=== PATIENT | male | born 1965 | race Caucasian/White ===

== ENCOUNTER 2017-09-19 19:51 | Inpatient (IN) | payer OTHER ==
[2017-09-19] MEDS ORDERED: ADACEL TDaP IM ONE ×2 (21:19→21:27)
[2017-09-19 22:23] LABS: BLOOD UREA NITROGEN 12 mg/dL (7-18); CALCIUM 8.5 mg/dL (8.5-10.1); CHLORIDE 99 mmol/L (98-107); CREATININE 1.03 mg/dL (0.70-1.30); SODIUM 136 mmol/L (136-145); eGFR BLACK RACES > 60 (>60); eGFR NON BLACK RACES > 60 (>60)
[2017-09-19] MEDS ORDERED: ANCEF VIAL 1 GM 2 GM in NS 100 ML IV 100 ML IV ONE (23:13)
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
[2017-09-19 23:42] LABS: BILIRUBIN,URINE NEGATIVE (NEGATIVE); BLOOD/HEMOGLOBIN,URINE NEGATIVE (NEGATIVE); GLUCOSE, URINE NEGATIVE (NEGATIVE); KETONES,URINE NEGATIVE (NEGATIVE); LEUKOCYTE ESTERASE ,URINE NEGATIVE (NEGATIVE); NITRITES,URINE NEGATIVE (NEGATIVE); PH,URINE 6.5 (5.0 - 8.0); PROTEIN,URINE NEGATIVE (NEGATIVE); UROBILINOGEN,URINE NORMAL (NORMAL)
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
[2017-09-19 23:49] LABS: APPEARANCE,URINE CLEAR (CLEAR); BACTERIA,URINE NEGATIVE /HPF (NEGATIVE); COLOR,URINE PALE YELLOW (YELLOW); RBC,URINE NONE SEEN /HPF (NONE SEEN); SQUAMOUS EPITHELIAL CELL,UR RARE /HPF (NEGATIVE)
[2017-09-20] MEDS ORDERED: ANCEF VIAL 1 GM ONE (00:01)
[2017-09-20] MEDS ORDERED: NS 100 ML IV 100 ML IV ONE (00:02)
[2017-09-20] MEDS ORDERED: ZOFRAN INJ 4 MG VIAL ONE (00:10)
[2017-09-20] MEDS ORDERED: ZOFRAN INJ 4 MG VIAL IVP ONE (00:10)
[2017-09-20] MEDS ORDERED: MORPHINE SULFATE INJ 2 MG INJ IVP ONE ×2 (00:10→01:29)
[2017-09-20] MEDS ORDERED: MORPHINE SULFATE INJ 2 MG INJ ONE ×2 (00:10→01:29)
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
[2017-09-20] MEDS ORDERED: XYLOCAINE 1 % (PLAIN) ONE (00:42)
[2017-09-20] MEDS ORDERED: ZOFRAN INJ 4 MG VIAL IVP PRN (02:16)
[2017-09-20] MEDS ORDERED: BACTROBAN OINT TOP ONE (02:37)
[2017-09-20] MEDS ORDERED: BACITRACIN ZINC ONE (02:37)
[2017-09-20 05:11] VITALS: BMI 25.9
[2017-09-20] MEDS: MORPHINE SULFATE INJ 2 MG INJ IVP PRN ×4 (05:40→20:36)
[2017-09-20] MEDS ORDERED: XYLOCAINE 2 % (PLAIN) ONE (12:12)
--- NOTE | 2017-09-20 12:35 | RAD ---
History: Right index finger wound Study: PA oblique and lateral views of the right hand Comparison: Yesterday Findings: There is no interval change. There is persistent dorsal dislocation of the PIP joint of the 2nd digit. There is a dorsal fracture at the base of the distal phalanx of the 2nd digit with minima l distraction. There are mild osteophytes about the 1st metacarpophalangeal joint space. Impression: 1. Unchanged dorsal dislocation of the PIP joint of the 2nd digit 2. Unchanged fracture at the dorsal base of the distal phalanx of the 2nd digit Reported By:
[2017-09-20] MEDS ORDERED: BACITRACIN ZINC TOP ONE (12:48)
--- NOTE | 2017-09-20 13:38 | RAD ---
History: Post reduction of right index finger Study: Oblique and lateral and PA views of the right hand Findings: There is anatomical reduction of the PIP joint of the 2nd digit. There is a persistent frac ture at the dorsal base of the distal phalanx of the 2nd digit. There are osteophytes about the 1st m etacarpal phalangeal joint. There is soft tissue swelling about the index finger diffusely. Impression: Anatomical reduction of the PIP joint of the index finger Reported By:
[2017-09-20] MEDS ORDERED: FLEXERIL TAB 10 MG PO PRN (18:23)
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
[2017-09-20] MEDS ORDERED: NS 100 ML IV + SPIKE MINIBAG* 100 ML IV ONE ×2 (20:13→23:25)
[2017-09-20] MEDS ORDERED: NS 250 ML IV 250 ML IV ONE (20:14)
[2017-09-20] MEDS ORDERED: NS 1000 ML 1,000 ML ONE (20:26)
[2017-09-20] MEDS: ANCEF VIAL 1 GM 2 GM in NS 100 ML IV 100 ML IV SCH ×2 (20:35→23:35)
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
[2017-09-21] MEDS: MORPHINE SULFATE INJ 2 MG INJ IVP PRN ×2 (00:44→06:32)
[2017-09-21] MEDS: ANCEF VIAL 1 GM 2 GM in NS 100 ML IV 100 ML IV SCH (06:08)
[2017-09-21] MEDS ORDERED: NS 100 ML IV + SPIKE MINIBAG* 100 ML IV ONE (06:15)
[2017-09-21 06:30] LABS: BASOPHILS % (AUTO) 0.4 % (0.2-1.0); EOSINOPHILS # (AUTO) 0.1 x10^3/uL (0.0-0.2); EOSINOPHILS % (AUTO) 0.5 % (0.9-2.9); HEMATOCRIT 37.5 % (42.0-54.0); HEMOGLOBIN 13.3 g/dL (13.5-18.0); LYMPHOCYTES # (AUTO) 2.1 X10^3/uL (1.3-2.9); LYMPHOCYTES % (AUTO) 16.9 % (21.0-51.0); MEAN CORPUSCULAR HEMOGLOBIN 33.1 pg (27.0-34.0); MEAN CORPUSCULAR HGB CONC 35.6 g/dL (33.0-35.0); MEAN CORPUSCULAR VOLUME 93.2 fL (80.0-100.0); MEAN PLATELET VOLUME 7.5 fL (7.4-11.0); MONOCYTES # (AUTO) 1.6 x10^3/uL (0.3-0.8); MONOCYTES % (AUTO) 13.2 % (0.0-13.0); NEUTROPHILS # (AUTO) 8.4 x10^3/uL (2.2-4.8); PLATELET COUNT 301 X10^3/uL (150.0-450.0); RED BLOOD COUNT 4.03 X10^6/uL (4.7-6.0); RED CELL DISTRIBUTION WIDTH 12.9 % (11.6-16.5); WHITE BLOOD COUNT 12.1 X10^3/uL (3.6-10.0)
[2017-09-21 06:43] LABS: ALANINE AMINOTRANSFERASE 32 Units/L (12-78); ALBUMIN 3.6 g/dL (3.4-5.0); ALKALINE PHOSPHATASE 63 Units/L (46-116); ASPARTATE AMINO TRANSFERASE 36 Units/L (15-37); BLOOD UREA NITROGEN 17 mg/dL (7-18); CALCIUM 8.4 mg/dL (8.5-10.1); CARBON DIOXIDE 26.3 mmol/L (21-32); CHLORIDE 100 mmol/L (98-107); COR NA(FOR HYPERGLY) 138 mmol/L (136-145); CREATININE 1.12 mg/dL (0.70-1.30); SODIUM 137 mmol/L (136-145); TOTAL PROTEIN 7.6 g/dL (6.4-8.2); eGFR BLACK RACES > 60 (>60); eGFR NON BLACK RACES > 60 (>60)
[2017-09-21] MEDS ORDERED: BACITRACIN VIAL ONE (07:16)
[2017-09-21] MEDS ORDERED: BACTROBAN OINT ONE (07:17)
[2017-09-21] MEDS ORDERED: FENTANYL INJ 100 mcg ONE (07:19)
[2017-09-21] MEDS ORDERED: LR 1000 ML IV 1,000 ML IV ONE ×2 (07:24→07:30)
--- NOTE | 2017-09-21 07:34 | RAD ---
Exam: Abdomen, frontal view History: Lung contusion. Comparison: Previous chest CT from 09/19/2017 Findings: Heart size and pulmonary vasculature are normal. Lungs are clear with no infiltrate or significant ef fusion on either side. No pneumothorax. The previously described fractures involving the right 4th an d and 5th ribs (noted on CT) not clearly identified on this exam. IMPRESSION: No acute cardiopulmonary abnormality is seen on this exam. Reported By:
[2017-09-21] MEDS ORDERED: NS IRRIGATION 1000 ML 1,000 ML with BACITRACIN VIAL 50,000 UNT IR ONE ×2 (08:27)
[2017-09-21] MEDS ORDERED: HYDROGEN PEROXIDE 3% ONE (08:52)
[2017-09-21] MEDS ORDERED: PERCOCET TAB 5/325 MG PO PRN (09:20)
--- NOTE | 2017-09-21 09:55 | RAD ---
HISTORY: Postop right index finger. ORIF Study: Right hand: Three views obtained portably Comparison: Exams from 09/20/2017, 09/19/2017 Findings: Since the prior examination there has been placement of 2 orthopedic wires. One traverses the distal phalanx and extends through the distal interphalangeal joint into the middle phalanx. The other shyanne ears to extend just through the head of the middle phalanx. There is near anatomic position and alig nment. On the lateral view there is what appears to be a fracture through the base of the middle pha lanx that extends into the proximal interphalangeal joint space. There is mild degenerative change i n the 1st carpal metacarpal joint 1st metacarpophalangeal joint. IMPRESSION: 1. Status post pin placement as described above. 2. There are findings suggesting a nondisplaced fracture through the base of the middle phalanx that extends into the proximal interphalangeal joint . Clinical correlation is recommended. Reported By:
[2017-09-21] MEDS ORDERED: VERSED ONE (10:14)
[2017-09-21] MEDS ORDERED: XYLOCAINE 2 % (PLAIN) ONE (10:14)
[2017-09-21] MEDS ORDERED: DIPRIVAN VIAL ONE (10:14)
[2017-09-21 12:41] VITALS: BP 140/84
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
== END 2017-09-21 14:03 | disposition home or self-care (01) | DRG 983 ==
LOC: ER 19:51 → OBSVTOIN 09-20 02:59 → MED/SURG 09-20 02:59
PROVIDERS: ADMIT Internal Medicine; ATTEND Internal Medicine
PROC: 0HQ1XZZ Repair Face Skin, External Approach (ICD-10-PCS; principal; 2017-09-19)
PROC: 0HQFXZZ Repair Right Hand Skin, External Approach (ICD-10-PCS; 2017-09-19)
PROC: 0RSWXZZ Reposition Right Finger Phalangeal Joint, External Approach (ICD-10-PCS; 2017-09-19)
PROC: 0PSTXZZ Reposition Right Finger Phalanx, External Approach (ICD-10-PCS; 2017-09-20)
PROC: 0JDJ0ZZ Extraction of Right Hand Subcutaneous Tissue and Fascia, Open Approach (ICD-10-PCS; 2017-09-21)
PROC: 0PS Upper Bones, Reposition (ICD-10-PCS; 2017-09-21)
DX: S27.321A Contusion of lung, unilateral, initial encounter (principal); S62.630A Displaced fracture of distal phalanx of right index finger, initial encounter for closed fracture; S63.280A Dislocation of proximal interphalangeal joint of right index finger, initial encounter; Y92.89 Other specified places as the place of occurrence of the external cause; M25.562 Pain in left knee; M54.2 Cervicalgia; K21.9 Gastro-esophageal reflux disease without esophagitis; I10 Essential (primary) hypertension; M20.011 Mallet finger of right finger(s); V86.59XA Driver of other special all-terrain or other off-road motor vehicle injured in nontraffic accident, initial encounter
CPT/HCPCS: 12001; 12011; 26725; 36415; 70450; 70486; 71045; 71260; 72125; 73130; 73564; 74177; 76000; 80048; 80053; 81001; 85025; 87070; 87075; 87205; 90471; 93005; 93010; 96365; 96374; 96375; 99284; A4222; J0690; J2001; J2250; J2270; J2405; J3010; J3490; J7120

== ENCOUNTER 2018-03-24 12:10 | Inpatient (IN) ==
[2018-03-24 12:40] VITALS: BMI 27.9
--- NOTE | 2018-03-24 13:32 | DR.URIAD ---
HPI Time Seen Time Seen by Provider: 03/24/18 13:11 PCP Primary Care Physician: EDUAR CONTRERAS HPI Comment HPI Comment: SAW PCP 2 DAYS AGO. CHECK FOR FLU, NEGATIVE. HAD IM TORADOL, DECADRON AND ROCEPHIN IN THE OFFICE AND CONTINUE WITH PO ANTIBIOTIC AND ALBUTEROL INHALER. HE CONTINUE TO FEEL WORSE. PERSISTENTLY COUGHING. HE IS WEAK AND DRAIN OF ENERGY. Complaint Chief Complaint Doctors Comments: INCREASING SOB, COUGH, CONGESTION AND FEVER TIMES FEW DAYS. Chief Complaint:: URI Reviewed Nurses Notes Reviewed: Yes Source History Provided: Patient and Family Member Mode of Arrival Mode of Arrival: Ambulatory Timing Onset of Chief Complaint: 03/24/18 Context Recent Treated Infections: URI History of Respiratory: None Quality Quality of Cough: Productive and Yellow Rhinorrhea: Clear Associated Signs and Symptoms Other Signs and Symptoms: Cough, Fever, Myalgias, Shortness of Breath, Sore Throat, URI and Wheeze PMH PMH Past Medical History: Yes Past Medical History: Dyslipidemia, GERD and Hypertension Past Surgical History: Yes Surgical History: Appendectomy, Ortho Surgery and Other Family History History of Family Medical Conditions: Yes Family Medical History: Diabetes Mellitus, [place] and Hypertension Social History Does patient currently use any type of tobacco product: No Have you used tobacco products in the last 12 months: No Type of Tobacco Use: None Does any household member use tobacco: No Alcohol Use: Rarely Do you use any recreational Drugs:: No Lives With: Spouse Lives Where: Home infectious screening In the last 2 months have you had wt loss of >10#?: NO Have you had fever, night sweats or hemotysis?: No Have you traveled outside the country in the last 6 months?: No Isolation: Standard ROS Review of Systems Constitutional: No Symptoms Reported, Chills, Fever, Weakness and Fatigue Eyes: No Symptoms Reported ENTM: No Symptoms Reported, Ear Pain, Nose Discharge, Nose Congestion and Throat Pain Respiratoy: No Symptoms Reported, Productive Cough and Short of Breath Cardiovascular: No Symptoms Reported and Chest Pain Gastrointestinal/Abdominal: No Symptoms Reported Genitourinary: No Symptoms Reported Neurological: Headache, Weakness and Dizziness Musculoskeletal: Muscle Pain Integumentary: Dryness Hematologic/Lymphatic: No Symptoms Reported Endocrine: No Symptoms Reported Psychiatric: No Symptoms Reported All Other Systems: Reviewed and Negative PE Vital Signs Vitals: Temperature 98.1 F Pulse Rate [Right Brachial] 77 Pulse Rate [Left Brachial] 80 Pulse Rate 73 Respiratory Rate 20 Blood Pressure [Right Arm] 146/80 Blood Pressure [Left Arm] 106/59 Blood Pressure 132/92 O2 Sat by Pulse Oximetry 95 General Limitations: No Limitations General Appearance: Alert and In Distress Head Head Exam: Normal Inspection and Atraumatic Eyes Eye exam: Normal Appearance, PERRL and EOMI; negative Scleral Icterus and Conjunctival Injection ENT ENT Exam: Normal Exam, Normal External Ear Exam and TM's Normal Bilaterally External Ear Exam: Normal External Inspection TM/Canal Exam: Bilateral: Normal Nose Exam: Normal Nose Exam Nasal Speculum Exam: Bilateral: Normal Mouth Exam: Normal Inspection Throat Exam: Tonsillar Erythema; negative Tonsillomegaly and Tonsillar Exudate Neck Neck Exam: Normal Inspection and Trachea Midline Chest Chest Inspection: Normal Inspection and Symmetric Chest Wall Rise Respiratory Respiratory Exam: Normal Lung Sounds Bilat Respiratory Exam: Bilateral: Wheezing and Bilateral: Rhonchi and Lower: Wheezing and Lower: Rhonchi Cardiovascular Cardiovascular Exam: Regular Rate and Normal Rhythm Abdominal Exam Abdominal Exam: Normal Inspection, Normal Bowel Sounds and Soft Extremeties Extremities Exam: Normal Inspection Back Back Exam: Normal Inspection Neurologic Neurological Exam: Alert, Oriented X3 and CN II-XII Intact; negative Motor Sensory Deficit Psychiatric Psychiatric Exam: Normal Affect and Normal Mood Skin Skin Exam: Dry MDM Additional Information Additional Information Obtained From: Family Differential Diagnosis Differential Diagnosis: Otitis media, Streptococcal pharyngitis, Viral pharyngitis, Pneumonia and Sinsusitis COURSE Treatment Treatment: SEE ORDERS. Consultation Consultation Comments: DISCUSS PATIENT WITH Education/Counseling Education/Counseling: Patient, Family and Education Educated On: Diagnosis ROR Labs Reviewed Laboratory Results Reviewed?: Yes Result Diagrams: 03/28/18 05:20 03/28/18 05:20 Laboratory: 03/24/18 13:52 Blood Blood Culture - Final 03/24/18 13:47 Blood Blood Culture - Final 03/24/18 23:14 Sputum - Expectorated Sputum Sputum Culture - Final 03/24/18 23:14 Sputum - Expectorated Sputum - Final WBC 21.2 X10^3/uL (3.6-10.0) H 03/28/18 05:20 RBC 4.33 X10^6/uL (4.7-6.0) L 03/28/18 05:20 Hgb 14.3 g/dL (13.5-18.0) 03/28/18 05:20 Hct 40.8 % (42.0-54.0) L 03/28/18 05:20 MCV 94.3 fL (80.0-100.0) 03/28/18 05:20 MCH 33.0 pg (27.0-34.0) 03/28/18 05:20 MCHC 35.0 g/dL (33.0-35.0) 03/28/18 05:20 RDW 12.7 % (11.6-16.5) 03/28/18 05:20 Plt Count 272 X10^3/uL (150.0-450.0) 03/28/18 05:20 Plt Count Comment Adequate (ADEQUATE) 03/28/18 05:20 MPV 7.4 fL (7.4-11.0) 03/28/18 05:20 Neut % (Auto) 86.5 % (42.0-75.0) H 03/28/18 05:20 Lymph % (Auto) 7.6 % (21.0-51.0) L 03/28/18 05:20 [place] % (Auto) 5.7 % (0.0-13.0) 03/28/18 05:20 Eos % (Auto) 0.0 % (0.9-2.9) L 03/28/18 05:20 Baso % (Auto) 0.2 % (0.2-1.0) 03/28/18 05:20 Neut # (Auto) 18.3 x10^3/uL (2.2-4.8) H 03/28/18 05:20 Lymph # (Auto) 1.6 X10^3/uL (1.3-2.9) 03/28/18 05:20 [place] # (Auto) 1.2 x10^3/uL (0.3-0.8) H 03/28/18 05:20 Eos # (Auto) 0.0 x10^3/uL (0.0-0.2) 03/28/18 05:20 Baso # (Auto) 0.0 X10^3/uL (0.0-0.1) 03/28/18 05:20 Absolute Nucleated RBC 0.1 /100WBC 03/28/18 05:20 Total Counted 100 03/28/18 05:20 Neutrophils % (Manual) 81 % (39-76) H 03/28/18 05:20 Band Neutrophils % 3 % (0-10) 03/28/18 05:20 Lymphocytes % (Manual) 11 % (13-43) L 03/28/18 05:20 Monocytes % (Manual) 5 % (4-9) 03/28/18 05:20 Plt Morphology Comment Normal (NORMAL) 03/28/18 05:20 RBC Morphology Normal (NORMAL) 03/28/18 05:20 Sample Site Rb 03/24/18 13:30 ABG pH 7.480 (7.35-7.45) H 03/24/18 13:30 ABG pCO2 31.0 mmHg (35.0-45.0) L 03/24/18 13:30 ABG pO2 88.0 mmHg (80.0-100.0) 03/24/18 13:30 ABG HCO3 23.1 mmol/L (22-26) 03/24/18 13:30 ABG O2 Saturation 97.0 % (90-100) 03/24/18 13:30 ABG Base Excess 0.3 mmol/L (-2.0-2.0) 03/24/18 13:30 Atul Test Na 03/24/18 13:30 A-a Gradient 23.0 mmHg 03/24/18 13:30 FiO2 21 03/24/18 13:30 Blood Gas Comments Pt shekhar well llj 03/24/18 13:30 Sodium 131 mmol/L (136-145) L 03/28/18 05:20 Corrected Sodium 135 mmol/L (136-145) L 03/28/18 05:20 Potassium 4.6 mmol/L (3.5-5.1) 03/28/18 05:20 Chloride 94 mmol/L (98-107) L 03/28/18 05:20 Carbon Dioxide 25.5 mmol/L (21-32) 03/28/18 05:20 BUN 26 mg/dL (7-18) H 03/28/18 05:20 Creatinine 1.36 mg/dL (0.70-1.30) H 03/28/18 05:20 Est GFR (MDRD) Af Amer > 60 (>60) 03/28/18 05:20 Est GFR (MDRD) Non-Af 58 (>60) L 03/28/18 05:20 Glucose 276 mg/dL (65-99) H 03/28/18 05:20 Lactic Acid 1.5 mmol/L (0.4-2.0) 03/24/18 13:47 Calcium 9.0 mg/dL (8.5-10.1) 03/28/18 05:20 Corrected Calcium TNP 03/28/18 05:20 Total Bilirubin 0.40 mg/dL (0.2-1.0) 03/28/18 05:20 AST 15 Units/L (15-37) 03/28/18 05:20 ALT 59 Units/L (12-78) 03/28/18 05:20 Alkaline Phosphatase 59 Units/L (46-116) 03/28/18 05:20 Creatine Kinase 49 Units/L (39-308) 03/24/18 13:47 CK-MB (CK-2) 1.0 ng/mL (0-4.0) 03/24/18 13:47 CK/CKMB % Calc 2.0 % (<4) 03/24/18 13:47 Troponin I < 0.02 ng/mL (0-1.5) 03/24/18 13:47 Total Protein 7.2 g/dL (6.4-8.2) 03/28/18 05:20 Albumin 3.5 g/dL (3.4-5.0) 03/28/18 05:20 Globulin 3.7 g/dL (2.5-4.5) 03/28/18 05:20 Albumin/Globulin Ratio 0.9 Ratio (1.1-2.1) L 03/28/18 05:20 Specimen Type Clean catch urine 03/24/18 23:16 Urine Color Yellow (YELLOW) 03/24/18 23:16 Urine Appearance Clear (CLEAR) 03/24/18 23:16 Urine pH 5.0 (5.0 - 8.0) 03/24/18 23:16 Ur Specific [place] 1.020 (1.000-1.030) 03/24/18 23:16 Urine Protein 1+ (NEGATIVE) 03/24/18 23:16 Urine Glucose (UA) 4+ (NEGATIVE) 03/24/18 23:16 Urine Ketones 1+ (NEGATIVE) 03/24/18 23:16 Urine Occult Blood Negative (NEGATIVE) 03/24/18 23:16 Urine Nitrite Negative (NEGATIVE) 03/24/18 23:16 Urine Bilirubin Negative (NEGATIVE) 03/24/18 23:16 Urine Urobilinogen Normal (NORMAL) 03/24/18 23:16 Ur Leukocyte Esterase Negative (NEGATIVE) 03/24/18 23:16 Urine RBC None seen /HPF (NONE SEEN) 03/24/18 23:16 Urine WBC None seen /HPF (NONE SEEN) 03/24/18 23:16 Ur Squamous Epith Cells Negative /HPF (NEGATIVE) 03/24/18 23:16 Urine Bacteria Negative /HPF (NEGATIVE) 03/24/18 23:16 Ur Culture Indicated? No/not indicated 03/24/18 23:16 XRAY XRAY Interpreted by: Radiologist XRAY Findings: REPORT DISCUSS WITH PATIENT. EKG [place]: Normal Rhythm: NSR Block: None Hypertrophy: None ST: Normal Diagnosis Discharge Problem: SOB (shortness of breath), Weakness, Bronchitis Instructions Instructions: Chronic Obstructive Pulmonary Disease, Atmb-[id number] Acute Bronchitis, Adult, [id number] Hypertension, [id number] Forms: Patient Portal
[2018-03-24 14:09] LABS: BASOPHILS % (AUTO) 0.3 % (0.2-1.0); EOSINOPHILS # (AUTO) 0.2 x10^3/uL (0.0-0.2); EOSINOPHILS % (AUTO) 1.4 % (0.9-2.9); HEMATOCRIT 45.2 % (42.0-54.0); HEMOGLOBIN 15.9 g/dL (13.5-18.0); LYMPHOCYTES % (AUTO) 25.1 % (21.0-51.0); MEAN CORPUSCULAR HEMOGLOBIN 33.6 pg (27.0-34.0); MEAN CORPUSCULAR HGB CONC 35.2 g/dL (33.0-35.0); MEAN CORPUSCULAR VOLUME 95.2 fL (80.0-100.0); MEAN PLATELET VOLUME 7.6 fL (7.4-11.0); MONOCYTES # (AUTO) 1.5 x10^3/uL (0.3-0.8); NEUTROPHILS # (AUTO) 7.1 x10^3/uL (2.2-4.8); NEUTROPHILS % (AUTO) 60.2 % (42.0-75.0); PLATELET COUNT 271 X10^3/uL (150.0-450.0); RED BLOOD COUNT 4.75 X10^6/uL (4.7-6.0); RED CELL DISTRIBUTION WIDTH 12.9 % (11.6-16.5); WHITE BLOOD COUNT 11.8 X10^3/uL (3.6-10.0)
[2018-03-24 14:25] LABS: BLOOD UREA NITROGEN 31 mg/dL (7-18); CALCIUM 9.4 mg/dL (8.5-10.1); CARBON DIOXIDE 26.7 mmol/L (21-32); CHLORIDE 101 mmol/L (98-107); COR NA(FOR HYPERGLY) 139 mmol/L (136-145); CREATININE 1.18 mg/dL (0.70-1.30); SODIUM 138 mmol/L (136-145); TROPONIN I < 0.02 ng/mL (0-1.5); eGFR NON BLACK RACES > 60 (>60)
[2018-03-24 14:26] LABS: LACTIC ACID 1.5 mmol/L (0.4-2.0)
[2018-03-24 14:29] LABS: ALANINE AMINOTRANSFERASE 79 Units/L (12-78); ALBUMIN 3.7 g/dL (3.4-5.0); ALKALINE PHOSPHATASE 72 Units/L (46-116); ASPARTATE AMINO TRANSFERASE 53 Units/L (15-37); CREATINE KINASE 49 Units/L (39-308); TOTAL PROTEIN 7.7 g/dL (6.4-8.2)
--- NOTE | 2018-03-24 14:34 | RAD ---
HISTORY: Cough, chest pressure Study: Chest PA and lateral Comparison: 09/21/2017 Findings: The heart is within normal limits in size. The zachery are normal. The lung mota are clear. No pleural effusions are identified. The bony thorax is unremarkable. IMPRESSION: No significant abnormality identified Reported By:
[2018-03-24 15:28] LABS: ABG BASE EXCESS 0.3 mmol/L (-2.0-2.0); ABG HCO3 23.1 mmol/L (22-26); FRACTIONATED INSPIRED OXYGEN 21
[2018-03-24] MEDS ORDERED: TORADOL 30 MG VIAL IVP ONE (15:31)
[2018-03-24] MEDS ORDERED: NS 1000 ML 1,000 ML IV ONE (15:31)
[2018-03-24] MEDS ORDERED: ROCEPHIN VIAL 1 GRAM IVP ONE (15:31)
[2018-03-24] MEDS ORDERED: SOLU-Medrol 125 MG VIAL IVP ONE (15:31)
[2018-03-24] MEDS ORDERED: TORADOL 30 MG VIAL ONE (15:49)
[2018-03-24] MEDS ORDERED: NS 1000 ML 1,000 ML ONE (15:49)
[2018-03-24] MEDS ORDERED: ROCEPHIN VIAL 1 GRAM ONE (15:50)
[2018-03-24] MEDS ORDERED: SOLU-Medrol 125 MG VIAL ONE (15:50)
[2018-03-24] MEDS ORDERED: FORTAZ or TAZICEF VIAL INJ IM ONE (17:22)
[2018-03-24] MEDS: DUONEB 0.5 MG/3 MG NEB SCH ×2 (18:29→21:23)
[2018-03-24] MEDS ORDERED: NS 250 ML IV 250 ML IV ONE (21:20)
[2018-03-24] MEDS ORDERED: SALINE 3% 15 ML NEB TX ONE (21:23)
[2018-03-24] MEDS ORDERED: SALINE 3% 15 ML NEB TX NEB ONE (21:24)
[2018-03-24] MEDS: CIPRO IV 200 MG PREMIX* 200 MG/100 ML BAG IV SCH (21:42)
[2018-03-24] MEDS ORDERED: NORCO 5/325 MG TAB PO PRN (22:34)
[2018-03-24 23:27] LABS: BILIRUBIN,URINE NEGATIVE (NEGATIVE); BLOOD/HEMOGLOBIN,URINE NEGATIVE (NEGATIVE); GLUCOSE, URINE 4+ (NEGATIVE); KETONES,URINE 1+ (NEGATIVE); LEUKOCYTE ESTERASE ,URINE NEGATIVE (NEGATIVE); NITRITES,URINE NEGATIVE (NEGATIVE); PROTEIN,URINE 1+ (NEGATIVE); UROBILINOGEN,URINE NORMAL (NORMAL)
[2018-03-24 23:34] LABS: APPEARANCE,URINE CLEAR (CLEAR); COLOR,URINE YELLOW (YELLOW)
[2018-03-24 23:39] LABS: RBC,URINE NONE SEEN /HPF (NONE SEEN)
[2018-03-24 23:40] LABS: BACTERIA,URINE NEGATIVE /HPF (NEGATIVE); SQUAMOUS EPITHELIAL CELL,UR NEGATIVE /HPF (NEGATIVE)
[2018-03-25] MEDS: DUONEB 0.5 MG/3 MG NEB SCH ×5 (01:04→16:04)
[2018-03-25 06:04] LABS: BASOPHILS % (AUTO) 0.1 % (0.2-1.0); HEMATOCRIT 41.2 % (42.0-54.0); HEMOGLOBIN 14.5 g/dL (13.5-18.0); LYMPHOCYTES # (AUTO) 1.4 X10^3/uL (1.3-2.9); LYMPHOCYTES % (AUTO) 11.1 % (21.0-51.0); MEAN CORPUSCULAR HEMOGLOBIN 33.7 pg (27.0-34.0); MEAN CORPUSCULAR HGB CONC 35.3 g/dL (33.0-35.0); MEAN CORPUSCULAR VOLUME 95.5 fL (80.0-100.0); MEAN PLATELET VOLUME 7.6 fL (7.4-11.0); MONOCYTES % (AUTO) 7.7 % (0.0-13.0); NEUTROPHILS # (AUTO) 10.5 x10^3/uL (2.2-4.8); NEUTROPHILS % (AUTO) 81.1 % (42.0-75.0); PLATELET COUNT 229 X10^3/uL (150.0-450.0); RED BLOOD COUNT 4.31 X10^6/uL (4.7-6.0); RED CELL DISTRIBUTION WIDTH 12.7 % (11.6-16.5)
[2018-03-25 06:14] LABS: BLOOD UREA NITROGEN 32 mg/dL (7-18); CALCIUM 9.2 mg/dL (8.5-10.1); CARBON DIOXIDE 21.6 mmol/L (21-32); CHLORIDE 101 mmol/L (98-107); COR NA(FOR HYPERGLY) 138 mmol/L (136-145); CREATININE 1.35 mg/dL (0.70-1.30); SODIUM 136 mmol/L (136-145); eGFR NON BLACK RACES 59 (>60)
--- NOTE | 2018-03-25 07:49 | RAD ---
History: Cough Study: AP chest Comparison: Yesterday Findings: The lungs are clear and the heart and mediastinum are unremarkable. There is no edema or ef fusion or congestion. Impression: No active cardiopulmonary disease Reported By:
[2018-03-25] MEDS: NORCO 10/325 TAB PO PRN (07:57)
[2018-03-25] MEDS: CIPRO IV 200 MG PREMIX* 200 MG/100 ML BAG IV SCH (08:09)
[2018-03-25] MEDS: SOLU-Medrol 40 MG VIAL IVP SCH ×3 (08:09→21:30)
[2018-03-25] MEDS ORDERED: CRESTOR TAB 10 MG PO SCH (15:00)
[2018-03-25] MEDS: HYDROCHLOROTHIAZIDE 25 MG TAB PO SCH (16:38)
[2018-03-25] MEDS: NORVASC TAB 10 MG PO SCH (16:38)
[2018-03-25] MEDS: XOPENEX 1.25 MG/3 ML NEBULE NEB SCH (20:21)
[2018-03-25] MEDS: PULMICORT NEB TX 0.5 MG NEB SCH (20:21)
[2018-03-25] MEDS ORDERED: REQUIP PO SCH (21:00)
[2018-03-25] MEDS: REQUIP PO SCH (21:16)
[2018-03-25] MEDS: DEPAKOTE ER PO SCH (21:16)
[2018-03-25] MEDS: RESTORIL CAP 15 MG PO PRN (21:16)
[2018-03-25] MEDS: LIPITOR TAB 40 MG PO SCH (21:17)
[2018-03-25] MEDS: VALIUM PO SCH (21:17)
[2018-03-25] MEDS: CIPRO IV 400 MG PREMIX* 400 MG/200 ML IV.SOLN. IV SCH (21:19)
[2018-03-25] MEDS: CATAPRES TAB 0.1 MG PO SCH (21:32)
[2018-03-25] MEDS: CYMBALTA PO SCH (21:32)
--- NOTE | 2018-03-25 23:27 | DR.H&P ---
H&P - History & Physical for Day of: H&P Date: 03/24/18 - Chief Complaint Chief Complaint: SOB, CHEST PRESSURE, COUGH - History of Present Illness History of Present Illness: IS A 52 YEAR OLD PATIENT OF EDUAR CONTRERAS. HE PRESENTED TO THE EMERGENCY ROOM WITH COMPLAINTS OF SHORNTESS OF BREATH AND CHEST PRESSURE X 1 WEEK. SHE WAS SEEN IN THE OFFICE ONE WEEK PRIOR AND TREATED FOR BRONCHITIS WITH ROCEPHIN, DECADRON, AND A TORADOL INJECTION. ON EXAMINATION, HE IS NOTED WITH SCATTERED WHEEZING THROUGHOUT. ON ARRIVAL, VITALS WERE 98.6-75-20-97%-132/92. LABS WERE OBTAINED. ABNORMAL LAB VALUES INCLUDE THE FOLLOWING: WBC 11.8, BUN 31, GLUCOSE 121, AST 53, ALT 79. ABG REVEALED: PH 7.480, PC02 31.0, P02 88.0, HC03 23.1, 02 SATURATION 97.0. A CHEST XRAY WAS OBTAINED AND REVEALED: The heart is within normal limits in size. The zachery are normal. The lung mota are clear. No pleural effusions are identified. The bony thorax is unremarkable. HE WAS GIVEN SOLU-MEDROL 125MG IV X 1, ROCEPHIN 1GM IV X 1, TORADOL 30MG IV X 1, DUONEB X 1, AND A NORMAL SALINE BOLUS IN THE ER. HE WAS THEN ADMITTED TO THE HOSPITAL FOR FURTHER EVALUATION AND TREATMENT. HE WAS STARTED ON SOLU-MEDROL 80MG IV Q8H AND DUONEBS. OTHERWISE, WE PLAN TO FOLLOW UP WITH AM LABS AND CHEST XRAY AND CONTINUE TO MONITOR PATIENT. - Past Medical History Past Medical History: Hypertension, Dyslipidemia, GERD - Past Surgical History Surgical History: Appendectomy, Ortho Surgery - Family History Family Medical History: Diabetes Mellitus, Cancer, [place], Hypertension - Social History Does patient currently use any type of tobacco product: No Have you used tobacco products in the last 12 months: Yes Type of Tobacco Use: Cigarettes Does any household member use tobacco: No Alcohol Use: None Drug Use: Prescription Drugs - Medications Home Medications: HOLLIE Inhibitors Allergy (Verified 09/19/17 19:54) CONTINUE taking the following medications albuterol sulfate [Ventolin HFA] 1 puff INHALATION QID 03/24/18 [History] amoxicillin-pot clavulanate 1 tab PO BID 03/24/18 [History] cholestyramine-aspartame [Prevalite] 1 pack PO DAILY 03/24/18 [History] diazepam 1 tab PO BID PRN 03/24/18 [History] hydrocodone-acetaminophen 1 tab PO TID 03/24/18 [History] ropinirole 1 tab PO BID 03/24/18 [History] rosuvastatin 1 tab PO DAILY 03/24/18 [History] amlodipine 1 tab PO DAILY 03/25/18 [History] atorvastatin 1 tab PO DAILY 03/25/18 [History] baclofen 1 tab PO TID PRN 03/25/18 [History] clonidine HCl 1 tab PO BID 03/25/18 [History] divalproex 1 tab PO HS 03/25/18 [History] duloxetine 1 cap PO HS 03/25/18 [History] hydrochlorothiazide 1 tab PO DAILY 03/25/18 [History] metoprolol tartrate 1 tab PO BID 03/25/18 [History] pantoprazole 1 tab PO DAILY 03/25/18 [History] ranitidine HCl 1 tab PO DAILY 03/25/18 [History] - Physical Exam Vital Signs: Temperature 97.7 F Pulse Rate [Left Brachial] 72 Pulse Rate 75 Respiratory Rate 20 Blood Pressure [Right Arm] 167/90 Blood Pressure [Left Arm] 168/88 Blood Pressure 132/92 O2 Sat by Pulse Oximetry 98 - Allergies Allergies/Adverse Reactions: Allergies Allergy/AdvReac Type Severity Reaction Status Date / Time HOLLIE Inhibitors Allergy Verified 09/19/17 19:54
[2018-03-26] MEDS: NORCO 10/325 TAB PO PRN (01:38)
[2018-03-26 06:01] LABS: BASOPHILS % (AUTO) 0 % (0.2-1.0); HEMATOCRIT 41.3 % (42.0-54.0); HEMOGLOBIN 14.6 g/dL (13.5-18.0); LYMPHOCYTES # (AUTO) 1.3 X10^3/uL (1.3-2.9); LYMPHOCYTES % (AUTO) 7.4 % (21.0-51.0); MEAN CORPUSCULAR HEMOGLOBIN 33.4 pg (27.0-34.0); MEAN CORPUSCULAR HGB CONC 35.3 g/dL (33.0-35.0); MEAN CORPUSCULAR VOLUME 94.8 fL (80.0-100.0); MEAN PLATELET VOLUME 7.8 fL (7.4-11.0); MONOCYTES # (AUTO) 1.1 x10^3/uL (0.3-0.8); MONOCYTES % (AUTO) 6.2 % (0.0-13.0); NEUTROPHILS # (AUTO) 15.2 x10^3/uL (2.2-4.8); NEUTROPHILS % (AUTO) 86.4 % (42.0-75.0); PLATELET COUNT 270 X10^3/uL (150.0-450.0); RED BLOOD COUNT 4.36 X10^6/uL (4.7-6.0); RED CELL DISTRIBUTION WIDTH 12.9 % (11.6-16.5); WHITE BLOOD COUNT 17.6 X10^3/uL (3.6-10.0)
[2018-03-26] MEDS: SOLU-Medrol 40 MG VIAL IVP SCH ×2 (06:06→21:21)
[2018-03-26 06:17] LABS: ALANINE AMINOTRANSFERASE 65 Units/L (12-78); ALBUMIN 3.9 g/dL (3.4-5.0); ALKALINE PHOSPHATASE 65 Units/L (46-116); ASPARTATE AMINO TRANSFERASE 17 Units/L (15-37); BLOOD UREA NITROGEN 24 mg/dL (7-18); CALCIUM 9.8 mg/dL (8.5-10.1); CARBON DIOXIDE 26.5 mmol/L (21-32); CHLORIDE 95 mmol/L (98-107); COR NA(FOR HYPERGLY) 138 mmol/L (136-145); CREATININE 1.25 mg/dL (0.70-1.30); SODIUM 134 mmol/L (136-145); TOTAL PROTEIN 7.9 g/dL (6.4-8.2); eGFR NON BLACK RACES > 60 (>60)
--- NOTE | 2018-03-26 06:50 | RAD ---
Examination: AP chest History: SOB Comparison 03/25/2018 Findings: Continued normal heart size with clear lungs and pleural spaces. Impression: No change; no acute findings. Reported By:
[2018-03-26] MEDS: REQUIP PO SCH ×2 (08:57→22:17)
[2018-03-26] MEDS: HYDROCHLOROTHIAZIDE 25 MG TAB PO SCH (08:57)
[2018-03-26] MEDS: ZANTAC PO SCH (08:57)
[2018-03-26] MEDS: CATAPRES TAB 0.1 MG PO SCH ×2 (08:58→21:19)
[2018-03-26] MEDS: VALIUM PO SCH ×2 (08:58→22:29)
[2018-03-26] MEDS: NORVASC TAB 10 MG PO SCH (08:58)
[2018-03-26] MEDS: PROTONIX TAB 40 MG PO SCH (08:58)
[2018-03-26] MEDS ORDERED: QUESTRAN POWDER FOR ORAL SUSP PO SCH (09:00)
[2018-03-26] MEDS ORDERED: CHOLESTYRAMINE PO SCH (09:00)
[2018-03-26] MEDS ORDERED: [UNRECOGNIZED DRUG - OTHER] PO SCH (09:00)
[2018-03-26] MEDS: XOPENEX 1.25 MG/3 ML NEBULE NEB SCH ×4 (09:27→20:20)
[2018-03-26] MEDS: PULMICORT NEB TX 0.5 MG NEB SCH ×3 (09:28→20:20)
[2018-03-26] MEDS: DEPAKOTE ER PO SCH (21:19)
[2018-03-26] MEDS: CIPRO IV 400 MG PREMIX* 400 MG/200 ML IV.SOLN. IV SCH ×2 (21:20→21:23)
[2018-03-26] MEDS: LIPITOR TAB 40 MG PO SCH (21:20)
[2018-03-26] MEDS: CYMBALTA PO SCH (21:35)
[2018-03-27] MEDS: VALIUM PO SCH ×4 (00:41→23:16)
[2018-03-27] MEDS: RESTORIL CAP 15 MG PO PRN ×2 (00:41→23:15)
[2018-03-27 05:49] LABS: BASOPHILS % (AUTO) 0.2 % (0.2-1.0); LYMPHOCYTES # (AUTO) 1.4 X10^3/uL (1.3-2.9); LYMPHOCYTES % (AUTO) 7.9 % (21.0-51.0); MEAN CORPUSCULAR HEMOGLOBIN 33.3 pg (27.0-34.0); MEAN CORPUSCULAR VOLUME 95.1 fL (80.0-100.0); MEAN PLATELET VOLUME 7.7 fL (7.4-11.0); MONOCYTES % (AUTO) 5.5 % (0.0-13.0); NEUTROPHILS # (AUTO) 15.3 x10^3/uL (2.2-4.8); NEUTROPHILS % (AUTO) 86.4 % (42.0-75.0); PLATELET COUNT 272 X10^3/uL (150.0-450.0); RED CELL DISTRIBUTION WIDTH 12.7 % (11.6-16.5); WHITE BLOOD COUNT 17.7 X10^3/uL (3.6-10.0)
[2018-03-27] MEDS: SOLU-Medrol 40 MG VIAL IVP SCH ×4 (06:00→21:51)
[2018-03-27 06:06] LABS: ALANINE AMINOTRANSFERASE 62 Units/L (12-78); ALBUMIN 3.7 g/dL (3.4-5.0); ALKALINE PHOSPHATASE 57 Units/L (46-116); ASPARTATE AMINO TRANSFERASE 19 Units/L (15-37); BLOOD UREA NITROGEN 26 mg/dL (7-18); CALCIUM 9.1 mg/dL (8.5-10.1); CARBON DIOXIDE 25.9 mmol/L (21-32); CHLORIDE 93 mmol/L (98-107); COR NA(FOR HYPERGLY) 135 mmol/L (136-145); CREATININE 1.25 mg/dL (0.70-1.30); SODIUM 131 mmol/L (136-145); TOTAL PROTEIN 7.4 g/dL (6.4-8.2); eGFR NON BLACK RACES > 60 (>60)
--- NOTE | 2018-03-27 07:10 | RAD ---
Examination: AP chest History: SOB Comparison 03/26/2018 Findings: Continued normal heart size with clear lungs and pleural spaces. Impression: No interval change; no acute findings. Reported By:
[2018-03-27 07:11] LABS: BAND NEUTROPHILS % 6 % (0-10); PLATELET MORPHOLOGY COMMENT NORMAL (NORMAL)
[2018-03-27] MEDS ORDERED: NS 250 ML IV 250 ML IV ONE ×2 (08:26→10:23)
[2018-03-27] MEDS: CIPRO IV 400 MG PREMIX* 400 MG/200 ML IV.SOLN. IV SCH ×3 (08:56→21:51)
[2018-03-27] MEDS: PROTONIX TAB 40 MG PO SCH (08:57)
[2018-03-27] MEDS: CATAPRES TAB 0.1 MG PO SCH ×2 (08:57→21:51)
[2018-03-27] MEDS: ZANTAC PO SCH (08:57)
[2018-03-27] MEDS: REQUIP PO SCH ×2 (08:57→21:50)
[2018-03-27] MEDS: NORVASC TAB 10 MG PO SCH (08:58)
[2018-03-27] MEDS: HYDROCHLOROTHIAZIDE 25 MG TAB PO SCH (09:01)
[2018-03-27] MEDS: PULMICORT NEB TX 0.5 MG NEB SCH ×2 (09:09→21:12)
[2018-03-27] MEDS: XOPENEX 1.25 MG/3 ML NEBULE NEB SCH ×4 (09:09→21:12)
[2018-03-27] MEDS: LIPITOR TAB 40 MG PO SCH (21:50)
[2018-03-27] MEDS: CYMBALTA PO SCH (21:51)
[2018-03-27] MEDS: DEPAKOTE ER PO SCH (21:51)
[2018-03-28 05:36] LABS: BASOPHILS % (AUTO) 0.2 % (0.2-1.0); HEMATOCRIT 40.8 % (42.0-54.0); HEMOGLOBIN 14.3 g/dL (13.5-18.0); LYMPHOCYTES # (AUTO) 1.6 X10^3/uL (1.3-2.9); LYMPHOCYTES % (AUTO) 7.6 % (21.0-51.0); MEAN CORPUSCULAR VOLUME 94.3 fL (80.0-100.0); MEAN PLATELET VOLUME 7.4 fL (7.4-11.0); MONOCYTES # (AUTO) 1.2 x10^3/uL (0.3-0.8); MONOCYTES % (AUTO) 5.7 % (0.0-13.0); NEUTROPHILS # (AUTO) 18.3 x10^3/uL (2.2-4.8); NEUTROPHILS % (AUTO) 86.5 % (42.0-75.0); PLATELET COUNT 272 X10^3/uL (150.0-450.0); RED BLOOD COUNT 4.33 X10^6/uL (4.7-6.0); RED CELL DISTRIBUTION WIDTH 12.7 % (11.6-16.5); WHITE BLOOD COUNT 21.2 X10^3/uL (3.6-10.0)
[2018-03-28 05:45] LABS: ALANINE AMINOTRANSFERASE 59 Units/L (12-78); ALBUMIN 3.5 g/dL (3.4-5.0); ALKALINE PHOSPHATASE 59 Units/L (46-116); ASPARTATE AMINO TRANSFERASE 15 Units/L (15-37); BLOOD UREA NITROGEN 26 mg/dL (7-18); CARBON DIOXIDE 25.5 mmol/L (21-32); CHLORIDE 94 mmol/L (98-107); COR NA(FOR HYPERGLY) 135 mmol/L (136-145); CREATININE 1.36 mg/dL (0.70-1.30); SODIUM 131 mmol/L (136-145); TOTAL PROTEIN 7.2 g/dL (6.4-8.2); eGFR NON BLACK RACES 58 (>60)
[2018-03-28 06:10] LABS: BAND NEUTROPHILS % 3 % (0-10); PLATELET MORPHOLOGY COMMENT NORMAL (NORMAL)
--- NOTE | 2018-03-28 08:24 | PCM.PROG ---
Progress Note - Progress Note for Day of Date of Exam: 03/27/18 - Subjective Subjective: 52 WM ADMITTED WITH SOB, BRONCHOPNEUMONIA. PT HAS BEEN TREATED WITH IV ATBX, RESP THERAPY, JET NEBS, SUPPLEMENTAL O2. PT HAS IMPROVED EXP WHEEZING THIS AM, WITH SLIGHT DIMINISHED LUNG BASES. PT LABS REVIEWED WITH PT AND SPOUSE. PT CONTINUES TO CO INCREASED SOB ON EXERTION. PT DENIES CARDIAC ILLNESS , UNDER THE CARE OF DR NITA MURRAYIDOLOGIST IN [facility] WHICH HE SEE ANUALLY FOR CHECK UP. - Past Medical Family Social History Past Med/Fam/Surg Hx: No changes since H&P Allergies: Allergies HOLLIE Inhibitors Allergy (Verified 09/19/17 19:54) - Review of Systems ROS: No change since H&P - Vital Signs and I&O's Vital Signs: Temperature 97.4 F Pulse Rate [Left Brachial] 80 Pulse Rate 741 Respiratory Rate 20 Blood Pressure [Right Arm] 134/61 Blood Pressure [Left Arm] 106/59 Blood Pressure 132/92 O2 Sat by Pulse Oximetry 99 Intake and Output: Intake & Output 03/25/18 03/26/18 03/27/18 03/28/18 11:59 11:59 11:59 11:59 Intake Total 1370 / 1370 3370 / 3370 1339 / 1339 2029 Balance 1370 / 1370 3370 / 3370 1339 / 1339 2029 - Physical Exam Oriented: Normal Eyes: Normal Ear: Normal Nose: Normal Throat: Normal Respiratory: Diminished Cardiovascular: Normal : Normal Auscultation: Bowel Sounds: Normal Palpation: Normal Tenderness: Normal Skin: Normal Musculoskeletal: Normal Psychiatric: Normal Mood Description: Anxious Affect: Anxious Speech Pattern: Clear, Appropriate - Laboratory and Diagnostics Result Diagrams: 03/28/18 05:20 03/28/18 05:20 Labs: 03/24/18 13:52 Blood Blood Culture - Preliminary 03/24/18 13:47 Blood Blood Culture - Preliminary 03/24/18 23:14 Sputum - Expectorated Sputum Sputum Culture - Final 03/24/18 23:14 Sputum - Expectorated Sputum - Final Laboratory WBC 21.2 X10^3/uL (3.6-10.0) H 03/28/18 05:20 RBC 4.33 X10^6/uL (4.7-6.0) L 03/28/18 05:20 Hgb 14.3 g/dL (13.5-18.0) 03/28/18 05:20 Hct 40.8 % (42.0-54.0) L 03/28/18 05:20 MCV 94.3 fL (80.0-100.0) 03/28/18 05:20 MCH 33.0 pg (27.0-34.0) 03/28/18 05:20 MCHC 35.0 g/dL (33.0-35.0) 03/28/18 05:20 RDW 12.7 % (11.6-16.5) 03/28/18 05:20 Plt Count 272 X10^3/uL (150.0-450.0) 03/28/18 05:20 Plt Count Comment Adequate (ADEQUATE) 03/28/18 05:20 MPV 7.4 fL (7.4-11.0) 03/28/18 05:20 Neut % (Auto) 86.5 % (42.0-75.0) H 03/28/18 05:20 Lymph % (Auto) 7.6 % (21.0-51.0) L 03/28/18 05:20 [place] % (Auto) 5.7 % (0.0-13.0) 03/28/18 05:20 Eos % (Auto) 0.0 % (0.9-2.9) L 03/28/18 05:20 Baso % (Auto) 0.2 % (0.2-1.0) 03/28/18 05:20 Neut # (Auto) 18.3 x10^3/uL (2.2-4.8) H 03/28/18 05:20 Lymph # (Auto) 1.6 X10^3/uL (1.3-2.9) 03/28/18 05:20 [place] # (Auto) 1.2 x10^3/uL (0.3-0.8) H 03/28/18 05:20 Eos # (Auto) 0.0 x10^3/uL (0.0-0.2) 03/28/18 05:20 Baso # (Auto) 0.0 X10^3/uL (0.0-0.1) 03/28/18 05:20 Absolute Nucleated RBC 0.1 /100WBC 03/28/18 05:20 Total Counted 100 03/28/18 05:20 Neutrophils % (Manual) 81 % (39-76) H 03/28/18 05:20 Band Neutrophils % 3 % (0-10) 03/28/18 05:20 Lymphocytes % (Manual) 11 % (13-43) L 03/28/18 05:20 Monocytes % (Manual) 5 % (4-9) 03/28/18 05:20 Plt Morphology Comment Normal (NORMAL) 03/28/18 05:20 RBC Morphology Normal (NORMAL) 03/28/18 05:20 Sample Site Rb 03/24/18 13:30 ABG pH 7.480 (7.35-7.45) H 03/24/18 13:30 ABG pCO2 31.0 mmHg (35.0-45.0) L 03/24/18 13:30 ABG pO2 88.0 mmHg (80.0-100.0) 03/24/18 13:30 ABG HCO3 23.1 mmol/L (22-26) 03/24/18 13:30 ABG O2 Saturation 97.0 % (90-100) 03/24/18 13:30 ABG Base Excess 0.3 mmol/L (-2.0-2.0) 03/24/18 13:30 Atul Test Na 03/24/18 13:30 A-a Gradient 23.0 mmHg 03/24/18 13:30 FiO2 21 03/24/18 13:30 Blood Gas Comments Pt shekhar well llj 03/24/18 13:30 Sodium 131 mmol/L (136-145) L 03/28/18 05:20 Corrected Sodium 135 mmol/L (136-145) L 03/28/18 05:20 Potassium 4.6 mmol/L (3.5-5.1) 03/28/18 05:20 Chloride 94 mmol/L (98-107) L 03/28/18 05:20 Carbon Dioxide 25.5 mmol/L (21-32) 03/28/18 05:20 BUN 26 mg/dL (7-18) H 03/28/18 05:20 Creatinine 1.36 mg/dL (0.70-1.30) H 03/28/18 05:20 Est GFR (MDRD) Af Amer > 60 (>60) 03/28/18 05:20 Est GFR (MDRD) Non-Af 58 (>60) L 03/28/18 05:20 Glucose 276 mg/dL (65-99) H 03/28/18 05:20 Lactic Acid 1.5 mmol/L (0.4-2.0) 03/24/18 13:47 Calcium 9.0 mg/dL (8.5-10.1) 03/28/18 05:20 Corrected Calcium TNP 03/28/18 05:20 Total Bilirubin 0.40 mg/dL (0.2-1.0) 03/28/18 05:20 AST 15 Units/L (15-37) 03/28/18 05:20 ALT 59 Units/L (12-78) 03/28/18 05:20 Alkaline Phosphatase 59 Units/L (46-116) 03/28/18 05:20 Creatine Kinase 49 Units/L (39-308) 03/24/18 13:47 CK-MB (CK-2) 1.0 ng/mL (0-4.0) 03/24/18 13:47 CK/CKMB % Calc 2.0 % (<4) 03/24/18 13:47 Troponin I < 0.02 ng/mL (0-1.5) 03/24/18 13:47 Total Protein 7.2 g/dL (6.4-8.2) 03/28/18 05:20 Albumin 3.5 g/dL (3.4-5.0) 03/28/18 05:20 Globulin 3.7 g/dL (2.5-4.5) 03/28/18 05:20 Albumin/Globulin Ratio 0.9 Ratio (1.1-2.1) L 03/28/18 05:20 Specimen Type Clean catch urine 03/24/18 23:16 Urine Color Yellow (YELLOW) 03/24/18 23:16 Urine Appearance Clear (CLEAR) 03/24/18 23:16 Urine pH 5.0 (5.0 - 8.0) 03/24/18 23:16 Ur Specific [place] 1.020 (1.000-1.030) 03/24/18 23:16 Urine Protein 1+ (NEGATIVE) 03/24/18 23:16 Urine Glucose (UA) 4+ (NEGATIVE) 03/24/18 23:16 Urine Ketones 1+ (NEGATIVE) 03/24/18 23:16 Urine Occult Blood Negative (NEGATIVE) 03/24/18 23:16 Urine Nitrite Negative (NEGATIVE) 03/24/18 23:16 Urine Bilirubin Negative (NEGATIVE) 03/24/18 23:16 Urine Urobilinogen Normal (NORMAL) 03/24/18 23:16 Ur Leukocyte Esterase Negative (NEGATIVE) 03/24/18 23:16 Urine RBC None seen /HPF (NONE SEEN) 03/24/18 23:16 Urine WBC None seen /HPF (NONE SEEN) 03/24/18 23:16 Ur Squamous Epith Cells Negative /HPF (NEGATIVE) 03/24/18 23:16 Urine Bacteria Negative /HPF (NEGATIVE) 03/24/18 23:16 Ur Culture Indicated? No/not indicated 03/24/18 23:16 - Plan (1) Bronchopneumonia Status: Acute Plan: IV ATBX, RESP THERAPY, JET NEBS. SUPPLEMENTAL O2, PULMONARY TOILETING. BP CONTROL, ENCOURAGE PO HYDRATION, AMBULATE PT (2) Hypertension Status: Acute
[2018-03-28] MEDS: PROTONIX TAB 40 MG PO SCH (09:06)
[2018-03-28] MEDS: VALIUM PO SCH (09:06)
[2018-03-28] MEDS: REQUIP PO SCH (09:06)
[2018-03-28] MEDS: HYDROCHLOROTHIAZIDE 25 MG TAB PO SCH (09:06)
[2018-03-28] MEDS: CIPRO IV 400 MG PREMIX* 400 MG/200 ML IV.SOLN. IV SCH (09:06)
[2018-03-28] MEDS: ZANTAC PO SCH (09:06)
[2018-03-28] MEDS: NORVASC TAB 10 MG PO SCH (09:07)
[2018-03-28] MEDS: CATAPRES TAB 0.1 MG PO SCH (09:07)
[2018-03-28] MEDS: PULMICORT NEB TX 0.5 MG NEB SCH (09:32)
[2018-03-28] MEDS: XOPENEX 1.25 MG/3 ML NEBULE NEB SCH (09:32)
[2018-03-28 10:22] VITALS: BP 146/80
--- NOTE | 2018-05-03 21:22 | DR.CARTERD ---
- Discharge Summary for: Discharge Summary for Date of:: 03/28/18 - Admission Date Date of Admission: 03/24/18 - Admission Diagnoses Admission Diagnosis: 1. COPD Exacerbation 2. Shortness of breath 3. Bronchitis 4. Generalized weakness - Discharge Date Discharge Date: 03/28/18 - Discharge Diagnoses Discharge Diagnosis: 1. COPD Exacerbation 2. Shortness of breath 3. Bronchitis 4. Generalized weakness - Hospital Course Hospital Course: MR. RAMIREZ IS A 52 YEAR OLD PATIENT OF EDUAR CONTRERAS. HE PRESENTED TO THE EMERGENCY ROOM WITH COMPLAINTS OF SHORTNESS OF BREATH AND CHEST PRESSURE X 1 WEEK. HE WAS SEEN IN THE OFFICE ONE WEEK PRIOR AND TREATED FOR BRONCHITIS WITH ROCEPHIN, DECADRON, AND A TORADOL INJECTION. ON EXAMINATION, HE WAS NOTED WITH SCATTERED WHEEZING THROUGHOUT. ON ARRIVAL, VITALS WERE 98.6-75-20-97%-132/92. LABS WERE OBTAINED. ABNORMAL LAB VALUES INCLUDED THE FOLLOWING: WBC 11.8, BUN 31, GLUCOSE 121, AST 53, ALT 79. ABG REVEALED: PH 7.480, PC02 31.0, P02 88.0, HC03 23.1, 02 SATURATION 97.0. A CHEST XRAY WAS OBTAINED AND REVEALED: The heart is within normal limits in size. The zachery are normal. The lung mota are clear. No pleural effusions are identified. The bony thorax is unremarkable. HE WAS GIVEN SOLU-MEDROL 125MG IV X 1, ROCEPHIN 1GM IV X 1, TORADOL 30MG IV X 1, DUONEB X 1, AND A NORMAL SALINE BOLUS IN THE ER. HE WAS THEN ADMITTED TO THE HOSPITAL FOR FURTHER EVALUATION AND TREATMENT. HE WAS STARTED ON SOLU-MEDROL 80MG IV Q8H AND DUONEBS. WE CONTINUED TREATMENT OVER THE COURSE OF HIS FIVE DAY HOSPITAL STAY. PATIENT SLOWLY IMPROVED. ON DAY FIVE, PATIENT WAS NOTED WITH NO DISTRESS. HE DENIED SHORTNESS OF BREATH AND REPORTED IMPROVED SYMPTOMS. HE DENIED CHEST PA IN. ON AUSCULTATION, LUNGS WERE DIMINISHED, CLEAR. VITAL SIGNS STABLE. LABS WNL. WE PLANNED FOR DISCHARGE. INSTRUCTIONS FOR MEDICATIONS AND FOLLOW UP WERE DISCUSSED WITH PATIENT AND FAMILY, BOTH VOICED UNDERSTANDING. PATIENT DISCHARGED HOME IN STABLE CONDITION WITH FAMILY. - Discharge Medications Discharge Medications: Home Medication List albuterol sulfate 1 puff INHALATION QID 03/24/18 [History] cholestyramine-aspartame 1 pack PO DAILY 03/24/18 [History] diazepam 1 tab PO BID PRN 03/24/18 [History] hydrocodone-acetaminophen 1 tab PO TID 03/24/18 [History] ropinirole 1 tab PO BID 03/24/18 [History] rosuvastatin 1 tab PO DAILY 03/24/18 [History] amlodipine 1 tab PO DAILY 03/25/18 [History] atorvastatin 1 tab PO DAILY 03/25/18 [History] baclofen 1 tab PO TID PRN 03/25/18 [History] clonidine HCl 1 tab PO BID 03/25/18 [History] divalproex 1 tab PO HS 03/25/18 [History] duloxetine 1 cap PO HS 03/25/18 [History] hydrochlorothiazide 1 tab PO DAILY 03/25/18 [History] metoprolol tartrate 1 tab PO BID 03/25/18 [History] pantoprazole 1 tab PO DAILY 03/25/18 [History] ranitidine HCl 1 tab PO DAILY 03/25/18 [History] ciprofloxacin HCl [Cipro] 500 mg PO BID #20 tab 03/28/18 [Rx] levalbuterol HCl 1.25 mg NEB TID #50 ml 03/28/18 [Rx] methylprednisolone [Medrol (Hakeem)] 1 unit PO PER PKG DIR #1 ea 03/28/18 [Rx] tiotropium bromide [Spiriva with HandiHaler] 1 cap INHALATION QDAY #1 inh 03/28/18 [Rx] Prescriptions: ciprofloxacin HCl [Cipro] Blane Foss levalbuterol HCl Blane Foss methylprednisolone [Medrol (Hakeem)] Blane Foss tiotropium bromide [Spiriva with HandiHaler] Blane Foss - Discharge Disposition Discharge Disposition: PATIENT IS TO FOLLOW UP IN OUR OFFICE IN ONE WEEK.
== END 2018-03-28 11:45 | disposition home or self-care (01) | DRG 192 ==
LOC: ER 12:29 → MED/SURG 16:43
PROVIDERS: ADMIT Internal Medicine; ATTEND Internal Medicine
DX: J44.1 Chronic obstructive pulmonary disease with (acute) exacerbation; R53.1 Weakness; E78.2 Mixed hyperlipidemia; R07.89 Other chest pain; I10 Essential (primary) hypertension; J20.8 Acute bronchitis due to other specified organisms; R06.02 Shortness of breath; K21.9 Gastro-esophageal reflux disease without esophagitis
CPT/HCPCS: 36415; 36600; 71010; 71020; 71045; 71046; 80048; 80053; 81001; 82550; 82553; 82803; 83605; 84484; 85025; 87040; 87070; 87205; 93005; 94640; 94760; 96365; 96374; 96375; 99231; 99284; A4222; J0696; J0744; J1885; J2920; J2930; J7030; J7050; J7620; J7626